=== PATIENT | male | born 1980 | race African-American/Black ===

== ENCOUNTER 2016-12-30 22:10 | Emergency (ER) | payer MEDICAID ==
[~2016-12-30] VITALS: Ht 188 cm; Wt 71.0 kg
[2016-12-31] MEDS ORDERED: KETOROLAC 60MG/2ML VIAL IM ONE
[2016-12-31 01:20] VITALS: BP 112/61
== END 2016-12-31 01:35 | disposition home or self-care (01) ==
LOC: ER 22:10
DX: M79.671 Pain in right foot (principal); F17.200 Nicotine dependence, unspecified, uncomplicated
CPT/HCPCS: 73630; 96372; 99284; J1885; Z7610